=== PATIENT | female | born 1970 | race Caucasian/White ===

== ENCOUNTER → 2023-08-15 16:21 | Outpatient (REF) | payer BC, SELFPAY | LOC: PAVMRI 16:21 | PROVIDERS: ATTENDING PHYSICIAN Psychiatry & Neurology Neurology; FAMILY PHYSICIAN Family Medicine | DX: G35 Multiple sclerosis (principal) | CPT/HCPCS: 70551; 72141 ==

== ENCOUNTER → 2024-06-02 07:55 | Outpatient (REF) | payer BC, SELFPAY | LOC: WDC 07:55 | PROVIDERS: ATTENDING PHYSICIAN Obstetrics & Gynecology; FAMILY PHYSICIAN Family Medicine | DX: Z12.31 Encounter for screening mammogram for malignant neoplasm of breast (principal) | CPT/HCPCS: 77063; 77067 ==

== ENCOUNTER 2024-07-25 23:01 | Emergency (ER) | payer BC, SELFPAY ==
[2024-07-25 23:09] VITALS: BP 168/94
[2024-07-26 00:27] VITALS: BP 144/103
[2024-07-26 00:33] VITALS: BP 144/103; BMI 37.0
[2024-07-26 01:00] VITALS: BP 134/73
--- NOTE | 2024-07-26 02:17 | ED.GENMED ---
History of Present Illness
General
Chief Complaint: Bowel Problem
Source: patient
Exam Limitations: none
Time Seen by Provider: 07/26/24 00:45
Nursing documentation reviewed up to this point in time: agreed with
History of Present Illness
History of Present Illness:
pt is a 54 y/o F
MS not on meds, no symptoms
says 1 mo ago she went on vacation and didn't have normal BM
since returning she has felt constipated; she has been able to have BMs but doesn't feel like she is going at her normal rate
she has been able to eat without nausea/vomiting
she says a few weeks ago she tried a dose of OTC stool softener which briefly helped but then after camping for , she didn't have normal bms
she used miralax tablets tonight without relief, says she laeked some fluid and moved small bm that was coiled and stringy
she does feel the urge to have stool and some back pain but denies abd pain
never had colonoscopy
no oipates
no iron
no bloody stool
Past History
Past History
ED Past Medical History: Other (MS)
ED Past Surgical History: Other (MTs)
Social History
Tobacco: Non-smoker
Alcohol: Occasional
Drug: None
Personal: Partner
Living: with family
Employment: Employed (title worker for insurance)
Family History
Family History: Other (Noncontributory)
Review of Systems
Review of Systems
Allergies reviewed?: Yes
All Other Systems: Not applicable
Phy Exam
Physical Exam
Physical Exam:
GENERAL: Alert , in no apparent distress
EYE: pupils equal and reactive
NECK: Supple
ENT: o/p clr, mmm.
CARDIAC: Regular rate and rhythm .
LUNGS: Clear breath sounds bilaterally, no acute respiratory distress, no wheezes/rales/rhonchi
ABDOMEN: Soft, without focal tenderness, no r/g, no cvat, normal bowel sounds\\
No fecal impaction, nontender, no hemorrhoids
NEUROLOGICAL: Alert and oriented, no focal neuro deficits
SKIN: Warm and dry, skin intact.
MUSCULOSKELETAL: No edema, well perfused. neg ivory's sign
PSYCH: Normal and appropriate interaction.
Course
Orders/Labs/Results
Orders:
Orders
07/26/24 00:58
Obstruct Series W/PA Chest [CR Obstruct Series W/pa Chest] Urgent
Comment:
Reason For Exam: constipation
07/26/24 01:26
Enema- Treatment ONCE
Type: Milk of Molasses
07/26/24 02:55
Magnesium Citrate [Citroma] 300 ml PO ONCE ONE
Vital Signs
Initial and Last Documented VS:
Initial Vital Signs
Temp Pulse Resp BP Pulse Ox
36.8 C 95 18 168/94 98
07/25/24 23:09 07/25/24 23:09 07/25/24 23:09 07/25/24 23:09 07/25/24 23:09
Last Documented Vital Signs
Temp Pulse Resp BP Pulse Ox
36.6 C 80 22 135/76 99
07/26/24 00:33 07/26/24 03:17 07/26/24 03:17 07/26/24 03:17 07/26/24 03:17
MDM/Problems Addressed
Differential Diagnosis Includes:
obstruction, constipation
MDM/Problems Addressed:
54 y/o F
here with constipation x 1 mo off and on after vacatoin
she has tried a few remedies, will go small amounts
still eating
no significant pain but mild lower back debby and rectal pain but nothing intesne
no fever/chills
abd soft, nontender
no previous surgery
neve rhad colonoscopy
pt informated to have one
no fecal impaction
xray shows diffuse stool in colon no obsruction
enema performed and she did stool some
offered ct scan but pt delcined
she will try mag citrate
retur precuations
*Critical Care Note
Total Time (30-74mins, 75-104mins- exclusive of procedures): Not Applicable
ED Attending Note
-
Portions of this chart may have been created with voice recognition software.� Occasional wrong word or��sound alike� substitutions may have occurred due to the inherent limitations of voice recognition software.
Discharge Plan
Departure
Patient Disposition: Home (Routine Discharge)
Date of Disposition: 07/26/24
Time of Disposition: 02:53
Patient with high blood pressure during this ER visit?: No
Condition: Fair
Covid-19: Not Applicable
Discharge Problem:
Constipation
Instructions: Constipation, Adult (DC)
Prescriptions:
No Action
amoxicillin-pot clavulanate 875 MG/125 MG tablet
1 tab PO BID Qty: 20 0RF
methylprednisolone [Medrol (Ronni)] 4 MG tablets,dose pack
4 tab PO . DIRECT Qty: 1 0RF
Referrals:
Yris Mora MD [Family Provider, Family Practice] - Follow up in 5-7 days
Activity Restrictions/Additional Instructions:
You were given an enema to help treat your constipation but you will likely need laxatives for several days to help this. Try half the bottle of magnesium citrate and wait 12 hours, if you have no bowel movement you can try the other half.
Patients tend to get crampy and have some abdominal discomfort when using this. The alternative to this would be MiraLAX twice a day, 1 capful in 8 ounces of juice or water. Do not use both of these at the same time.
I would only use the MiraLAX as more maintenance over the next couple of days after the magnesium citrate hopefully works for you. Continue Metamucil because this is a stool softener.
Return for worsening abdominal pain, rectal pain, vomiting, fever etc.
Interventions
Interventions:
*Risk Screen - Suicide Last Done: 07/25/24 23:09
*General Assessment Last Done: 07/26/24 03:18
*Neglect/Abuse Screening Last Done: 07/26/24 03:18
*ED- Fall Risk Assessment Last Done: 07/25/24 23:15
*ED COVID-19 Vaccine History Last Done: 07/26/24 03:18
*Nursing Disposition Last Done: 07/26/24 03:18
CC-Wlslav-Bmxcicjgyf Assessment Last Done: 07/26/24 00:33
Discharge Date and Time
Discharge Date/Time: 07/26/24 03:19
Print Language: BULGARIAN
[2024-07-26] MEDS: CITROMA 300 ML PO (03:09)
[2024-07-26 03:17] VITALS: BP 135/76
== END 2024-07-26 03:19 | disposition home or self-care (01) ==
LOC: EMR 23:01
PROVIDERS: EMERGENCY PHYSICIAN Emergency Medicine; FAMILY PHYSICIAN Family Medicine
DX: K59.00 Constipation, unspecified (principal); G35 Multiple sclerosis; K62.89 Other specified diseases of anus and rectum
CPT/HCPCS: 99283; 74022

== ENCOUNTER → 2024-07-27 11:39 | Outpatient (REF) | payer BC, SELFPAY | LOC: RAD 11:39 | PROVIDERS: ATTENDING PHYSICIAN Family Medicine | DX: K59.00 Constipation, unspecified (principal) | CPT/HCPCS: 74018 ==

== ENCOUNTER → 2024-08-16 07:11 | Outpatient (REF) | payer BC, SELFPAY | LOC: HWRAD 07:11 | PROVIDERS: ATTENDING PHYSICIAN Family Medicine | DX: G61.0 Guillain-Barre syndrome (principal) | CPT/HCPCS: 76700 ==

== ENCOUNTER 2024-09-12 06:22 | Day surgery (SDC) | payer BC, SELFPAY | END 2024-09-12 09:16 | disposition home or self-care (01) | LOC: GI 06:22 | PROVIDERS: ATTENDING PHYSICIAN Surgery | DX: Z12.11 Encounter for screening for malignant neoplasm of colon (principal); K57.30 Diverticulosis of large intestine without perforation or abscess without bleeding; K62.1 Rectal polyp | CPT/HCPCS: 45380; 88305 ==